=== PATIENT | male | born 1970 | race African-American/Black ===

== ENCOUNTER 2018-12-15 23:14 | Emergency (ER) | payer OTHER ==
[~2018-12-15] VITALS: Ht 180.3 cm; Wt 91.8 kg
[2018-12-15] MEDS ORDERED: LISI-661 PO (23:26)
[2018-12-15] MEDS ORDERED: HYDR25TA PO (23:26)
[2018-12-16] MEDS ORDERED: CloNIDine HCL 0.1 MG TABLET PO ONE (01:00)
[2018-12-16 01:46] VITALS: BP 141/94
== END 2018-12-16 02:55 | disposition home or self-care (01) ==
LOC: EMS 23:16
DX: I10 Essential (primary) hypertension (principal); Z76.0 Encounter for issue of repeat prescription; Z88.0 Allergy status to penicillin; Z79.899 Other long term (current) drug therapy